=== PATIENT | male | born 1955 | race Caucasian/White ===

== ENCOUNTER 2023-12-25 09:22 | Outpatient (CLI) | payer OTHER | END 2023-12-25 09:23 | disposition home or self-care (01) | LOC: MADLAB 09:22 | PROVIDERS: ATTEND Internal Medicine | DX: I69.911 Memory deficit following unspecified cerebrovascular disease (principal); J34.1 Cyst and mucocele of nose and nasal sinus | CPT/HCPCS: 70450 ==